=== PATIENT | male | born 1935 | race Caucasian/White ===

== ENCOUNTER 2018-11-29 16:02 | Emergency (ER) | payer OTHER ==
[~2018-11-29] VITALS: Ht 175.3 cm; Wt 127.0 kg
[2018-11-29] MEDS ORDERED: ATENOLOL25 MG (16:12)
[2018-11-29] MEDS ORDERED: ATENOLOL50 MG (16:13)
[2018-11-29] MEDS ORDERED: COZAAR25 MG (16:13)
[2018-11-29] MEDS ORDERED: VERAPAMIL ER100 MG (16:13)
[2018-11-29] MEDS ORDERED: URIN D.S. TABL1 EACH PO (19:08)
[2018-11-29] MEDS ORDERED: BACTRIM DS TAB1 EACH PO (19:08)
== END 2018-11-29 19:51 | disposition home or self-care (01) ==
LOC: ER 16:02
DX: N39.0 Urinary tract infection, site not specified (principal); B96.29 Other Escherichia coli [E. coli] as the cause of diseases classified elsewhere

== ENCOUNTER 2019-05-21 15:05 | Emergency (ER) | payer OTHER ==
[~2019-05-21] VITALS: Ht 175.3 cm; Wt 127.0 kg
[~2019-05-21 15:05] MED LIST: ATENOLOL25 MG; ATENOLOL50 MG; BACTRIM DS TAB1 EACH PO; CIPRO500 MG PO; COZAAR25 MG; TAMS0.4C PO; URIN D.S. TABL1 EACH PO; VERAPAMIL ER100 MG
== END 2019-05-21 21:55 | disposition home or self-care (01) ==
LOC: ER 15:05
DX: N40.1 Benign prostatic hyperplasia with lower urinary tract symptoms (principal); R33.8 Other retention of urine; R31.0 Gross hematuria

== ENCOUNTER 2019-05-22 06:52 | Emergency (ER) | payer OTHER ==
[~2019-05-22] VITALS: Ht 175.3 cm; Wt 127.9 kg
== END 2019-05-22 09:06 | disposition home or self-care (01) ==
LOC: ER 06:52
DX: R31.0 Gross hematuria (principal)

== ENCOUNTER 2019-06-26 20:14 | Emergency (ER) | payer OTHER ==
[~2019-06-26] VITALS: Ht 175.3 cm; Wt 127.0 kg
== END 2019-06-26 23:21 | disposition home or self-care (01) ==
LOC: ER 20:14
DX: R31.0 Gross hematuria (principal); N39.0 Urinary tract infection, site not specified

== ENCOUNTER → 2021-07-21 | Emergency (ER) | payer OTHER ==
[~2021-07-21] VITALS: Ht 172.7 cm; Wt 113.4 kg
== END | disposition home or self-care (01) ==
LOC: ER 18:07
DX: R00.2 Palpitations (principal); C61 Malignant neoplasm of prostate

== ENCOUNTER 2022-06-04 11:39 | Emergency (ER) | payer OTHER ==
[~2022-06-04] VITALS: Ht 180.3 cm; Wt 136.1 kg
[2022-06-04] MEDS ORDERED: FUROSEMIDE20 MG PO (17:10)
== END 2022-06-04 17:36 ==
LOC: ER 11:39
DX: R00.2 Palpitations (principal); I10 Essential (primary) hypertension; Z85.46 Personal history of malignant neoplasm of prostate

== ENCOUNTER 2023-02-17 14:25 | Emergency (ER) | payer OTHER ==
[~2023-02-17] VITALS: Ht 160 cm; Wt 95.3 kg
[~2023-02-17 14:25] MED LIST changes: +FUROSEMIDE20 MG PO
[2023-02-17 17:09] LABS: HEMATOCRIT 35.7 % (39.0-48.0); HEMOGLOBIN 12.2 g/dL (13-16.00); MEAN CELL VOLUME 93.4 fL (80.0-100.00); MEAN CORPUSCULAR HGB CONC 34.3 g/dl (32.0-36.0); PLATELET COUNT 190 K/uL (150-450); RED BLOOD COUNT 3.82 M/uL (4.00-6.00); RED CELL DISTRIBUTION WIDTH 14.5 % (11.5-14.5)
[2023-02-17 18:16] LABS: CALCIUM 8.8 mg/dL (8.5-10.1); CREATININE SERUM 0.83 mg/dL (0.70-1.30); GFR 88.05; POTASSIUM 3.9 mEq/L (3.5-5.1)
[2023-02-17 19:50] LABS: ABG PH 7.408 (7.35-7.45); ABG PO2 76.4 mmHg (80-100); ABG pCO2 43.4 mmHg (35-45); BASE EXCESS 1.7 mmol/l; BICARBONATE 26.8 mmol/l (23-25); SaO2 95.3 %; Tco2 28.1 mmol/l; allen test SATISFACTORY; o2 21 %; puncture site RADIAL LEFT
== END 2023-02-17 18:53 | disposition home or self-care (01) ==
LOC: ER 14:25
PROVIDERS: Emergency Medicine
DX: R06.02 Shortness of breath (principal); I10 Essential (primary) hypertension; Z20.822 Contact with and (suspected) exposure to COVID-19